=== PATIENT | male | born 1960 | race Native Hawaiian/Other Pacific Islander ===

== ENCOUNTER 2017-02-18 10:35 | Emergency (ER) | payer OTHER ==
[~2017-02-18] VITALS: Ht 157.5 cm; Wt 63.5 kg
[2017-02-18 10:49] VITALS: TEMP 98.3
[2017-02-18 11:09] LABS: PLATELET COUNT 339 K/uL (142-355)
[2017-02-18 11:40] LABS: POTASSIUM 4.3 mmol/L (3.6-5.2); SODIUM 125 mmol/L (136-145)
[2017-02-18 12:37] VITALS: BP 157/72
== END 2017-02-18 12:36 | disposition home or self-care (01) ==
LOC: ED 10:35
DX: J40 Bronchitis, not specified as acute or chronic (principal); J18.9 Pneumonia, unspecified organism; Z72.0 Tobacco use
CPT/HCPCS: 36415; 80053; 80307; 81000; 85027; 85651; 99283; G0479

== ENCOUNTER 2017-03-05 13:31 | Emergency (ER) | payer OTHER ==
[~2017-03-05] VITALS: Ht 167.6 cm; Wt 54.4 kg
[2017-03-05 14:52] LABS: PLATELET COUNT 392 K/uL (142-355)
[2017-03-05 15:08] LABS: PARTIAL THROMBOPLASTIN TIME 27.2 SECONDS (24.5-33.6)
[2017-03-05 15:57] LABS: POTASSIUM 3.9 mmol/L (3.6-5.2); SODIUM 129 mmol/L (136-145)
[2017-03-05 18:13] VITALS: BP 115/77; TEMP 98.1
== END 2017-03-05 18:15 | disposition short-term general hospital (02) ==
LOC: ED 13:31
PROVIDERS: Emergency Medicine
DX: R06.00 Dyspnea, unspecified (principal); C34.92 Malignant neoplasm of unspecified part of left bronchus or lung; C34.91 Malignant neoplasm of unspecified part of right bronchus or lung; R91.1 Solitary pulmonary nodule
CPT/HCPCS: 36415; 36600; 80053; 82550; 82805; 83605; 83880; 84484; 85027; 85610; 85730; 87040; 93005; 99283; Q9963

== ENCOUNTER 2017-03-05 18:18 | Outpatient (CLI) | payer OTHER | END 2017-03-05 19:45 | disposition short-term general hospital (02) | LOC: AMB 18:18 | DX: R06.00 Dyspnea, unspecified (principal); C34.92 Malignant neoplasm of unspecified part of left bronchus or lung; C34.91 Malignant neoplasm of unspecified part of right bronchus or lung; R91.1 Solitary pulmonary nodule | CPT/HCPCS: A0425; A0429 ==

== ENCOUNTER 2017-03-31 21:22 | Emergency (ER) | payer OTHER ==
[~2017-03-31] VITALS: Ht 170.2 cm; Wt 55.3 kg
[2017-03-31 23:32] VITALS: BP 119/72; TEMP 98.3
== END 2017-03-31 23:25 | disposition home or self-care (01) ==
LOC: ED 21:22
DX: M84.48XA Pathological fracture, other site, initial encounter for fracture (principal); C79.51 Secondary malignant neoplasm of bone
CPT/HCPCS: 80307; 81000; 96372; 99283; G0479; J1885; J2405

== ENCOUNTER 2017-04-09 21:15 | Inpatient (IN) | payer OTHER ==
[~2017-04-09] VITALS: Ht 170.2 cm; Wt 54.5 kg
[2017-04-09 21:33] VITALS: BP 129/96; TEMP 97.9
[2017-04-09 22:25] LABS: PLATELET COUNT 176 K/uL (142-355)
[2017-04-09 22:31] LABS: POTASSIUM 3.6 mmol/L (3.6-5.2); SODIUM 132 mmol/L (136-145)
[2017-04-10] VITALS (7 sets, daily range): BP systolic 121–142; BP diastolic 83–94; TEMP 97.4–98.8; Ht 170.2 cm; Wt 54.5 kg
[2017-04-10 05:21] LABS: PLATELET COUNT 169 K/uL (142-355)
[2017-04-10 05:54] LABS: POTASSIUM 3.3 mmol/L (3.6-5.2); SODIUM 131 mmol/L (136-145)
--- NOTE | 2017-04-10 13:11 | NUR ---
04/10/17 1205 CALLED IN RX FOR NEURONTIN 100MG PO TO [facility].CC 04/10/17 1215 DISCHARGE INSTRUCTIONS GIVEN,PT TO FOLLOW UP IN ONE WEEK APPT MADE FOR Friday.SALINE LOCK TO LEFT ARM REMOVED APPLIED 2X2 SECURED WITH TAPE.CC 04/10/17 0100 PT DISCHARGED OUT AMBULATED OUT FAMILY TO PICK PATIENT UP.CC
[2017-04-11] VITALS: BP 140/88; TEMP 97.6
[2017-04-11 04:00] VITALS: BP 125/95; TEMP 97.7
[2017-04-11 05:39] LABS: PLATELET COUNT 159 K/uL (142-355)
[2017-04-11 05:50] LABS: POTASSIUM 3.4 mmol/L (3.6-5.2); SODIUM 127 mmol/L (136-145)
[2017-04-11 08:00] VITALS: BP 119/86; TEMP 98.1
[2017-04-11 12:00] VITALS: BP 120/89; TEMP 98.3
[2017-04-11 16:00] VITALS: BP 144/94; TEMP 97.8
[2017-04-11 20:23] VITALS: BP 128/90; TEMP 97.8
[2017-04-12] VITALS: BP 123/94; TEMP 98.6
[2017-04-12 04:00] VITALS: BP 113/82; TEMP 97.7
[2017-04-12 05:07] LABS: PLATELET COUNT 167 K/uL (142-355)
[2017-04-12 05:47] LABS: POTASSIUM 4.2 mmol/L (3.6-5.2); SODIUM 128 mmol/L (136-145)
[2017-04-12 08:00] VITALS: BP 138/87; TEMP 97.8
[2017-04-12 12:00] VITALS: BP 138/98; TEMP 97.5
== END 2017-04-12 17:30 | disposition home health service (06) | DRG 641 ==
LOC: ED 21:15 → MED/SURG 23:30
PROVIDERS: Internal Medicine; ADMIT Family Medicine
DX: E86.0 Dehydration (principal); N39.0 Urinary tract infection, site not specified; C34.90 Malignant neoplasm of unspecified part of unspecified bronchus or lung; C79.51 Secondary malignant neoplasm of bone; R33.9 Retention of urine, unspecified; M54.89 Other dorsalgia
CPT/HCPCS: 36415; 36591; 80053; 81000; 82550; 83735; 85027; 87040; 87070; 87077; 87088; 87205; 94640; 94664; 94760; 96360; 96361; 96367; 96374; 96375; 99220; 99284; G0378; J0696; J1100; J1170; J1650; J2550; J3475; J3480

== ENCOUNTER → 2017-04-23 16:47 | Outpatient (CLI) | payer OTHER | END | disposition short-term general hospital (02) | LOC: AMB 16:47 ==